=== PATIENT | male | born 1985 | race Caucasian/White ===

== ENCOUNTER 2023-05-06 10:36 | Emergency (ER) | payer OTHER, SELFPAY ==
[2023-05-06 10:56] VITALS: BP 145/102; PULSE 116; RESP 16; TEMP 36.7; O2SAT 99
[2023-05-06 11:15] LABS: Glucose Point of Care 151 mg/dL (70-110)
--- NOTE | 2023-05-06 11:27 | XRR_ITS ---
PROCEDURE INFORMATION: Exam: XR Chest Exam date and time: 05/06/2023 11:44 AM Age: 38 years old Clinical indication: Cough; Additional info: Tachycardia, HTN TECHNIQUE: Imaging protocol: Radiologic exam of the chest. Views: 1 view. COMPARISON: CR XR acute abdomen series [id number] 08/11/2017 10:14 AM FINDINGS: Lungs: There is no consolidation. Pleural spaces: There is no pleural effusion or pneumothorax. Heart/Mediastinum: Cardiomediastinal contours are unremarkable. Bones/joints: Bones are unremarkable. XR/XR chest 1V portable [id number] IMPRESSION: No acute findings.
--- NOTE | 2023-05-06 11:27 | ECG_ITS ---
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 Measurements Intervals [place] Rate: 100 P: 56 MA: 136 QRS: 66 QRSD: 108 T: 49 QT: 377 QTc: 488 Interpretive Statements SINUS TACHYCARDIA Compared to ECG 08/11/2017 10:29:39 Sinus rhythm no longer present Sinus arrhythmia no longer present Electronically Signed On 05-06-2023 14:39:43 CDT by Alan Noble M.D. [id number]
[2023-05-06 11:41] LABS: Basophils % 0.4 %; Eosinophils % 0.5 %; Lymphocytes # 1.4 10^3/uL (0.8-4.8); Lymphocytes % 19.1 %; Mean Corpuscular HGB Conc 36.7 g/dL (30-55); Mean Corpuscular Volume 97.9 fl (82-101); Mean Platelet Volume 10.5 fL (7.4-10.4); Monocytes # 0.3 10^3/uL (0.2-0.9); Monocytes % 4.5 %; Neutrophils # 5.66 10^3/uL (1.8-7.7); Neutrophils % 75.4 %; Nucleated Red Blood Cells % 0 %; Platelet Count 136 10^3/cmm (157-399); Red Blood Count 5.31 10^6/uL (3.85-5.65); Red Cell Distribution Width 13.5 % (12.1-15.1); White Blood Count 7.52 10^3/uL (3.29-11.43)
--- NOTE | 2023-05-06 11:56 | W.ED.ALCOHOL ---
HPI - Alcohol General: Chief Complaint: Alcohol Stated Complaint: blood pressure was high Time Seen by Provider: 05/06/23 11:25 History of Present Illness: Patient presents to the ER with complaints of stopping drinking cold turkey. Patient states he normally drinks about 17 shots daily he prefers [place] honey whiskey. He has had 1 shot today to try to combat the side effects of not drinking. Patient says he has chief complaints of hands cramping jaw clenching unable to eat or drink tremors. He and his had split up and this is the only way that he can try to get her back so he is going at this full force. He says he has drank all his life. Patient has no significant medical history other than 1 previous heart attack per him. Patient does not take medicine, has no allergies, has no big surgical history. Review of Systems General: Reports: 10 or more systems reviewed and unremarkable except in HPI and below PFSH ED PFSH: Medical History Nocturnal cough with wheeze URI with cough and congestion Social History Smoking and tobacco status: never smoked Physical Exam Const: COMMON NORMALS: no acute distress, average body habitus, patient oriented x3, no limitations, healthy appearing, alert and well nourished HENMT: COMMON NORMALS: normocephalic, atraumatic, hearing grossly normal bilaterally, external ears normal, Normal external nose present and moist oral mucous membranes HEAD & SCALP: normocephalic and atraumatic NOSE: Normal external nose present EXTERNAL EAR: Yes external ears normal Eye: COMMON NORMALS: Equal, round and reactive pupils present, EOMs intact bilaterally, conjunctivae normal and no scleral icterus CONJUNCTIVA: Yes conjunctivae normal PUPIL: Yes Equal, round and reactive pupils present Neck/C-Spine: COMMON NORMALS: full ROM, no lymphadenopathy, supple, no meningeal signs, no JVD and Thyroid normal THYROID: Thyroid normal Chest: COMMONS NORMALS: normal inspection of the chest and normal palpation of entire chest wall Resp: COMMON NORMALS: normal respiratory effort, No retractions, No use of accessory muscles and clear to auscultation bilaterally AUSCULTATION: clear to auscultation bilaterally Cardio: COMMON NORMALS: no JVD, regular rate, regular rhythm, S1 normal heart sound present, S2 normal heart sound present, No gallops present (Cardio), No clicks present (Cardio), No murmurs present (Cardio) and No rub (Cardio) RATE: regular rate RHYTHM: regular rhythm HEART SOUNDS: S1 normal heart sound present and S2 normal heart sound present GI: COMMON NORMALS: Normal to inspection, nondistended, normoactive bowel sounds present, Soft to palpation, non-tender, No hepatosplenomegaly present and no masses PALPATION: Yes Soft to palpation and Yes No hepatosplenomegaly present : COMMON NORMALS: Yes no CVA tenderness BLADDER/KIDNEY EXAM: Yes no CVA tenderness Back/Pelvis: COMMON NORMALS: no CVA tenderness Neuro: COMMON NORMALS: patient oriented x3 SENSORIUM/ORIENTATION: Yes alert MENINGEAL SIGNS: Yes no meningeal signs Course Vital Signs: Vital signs: Vital Signs Temperature 98.1 F 05/06/23 10:56 Pulse Rate 92 05/06/23 14:30 Respiratory Rate 16 05/06/23 10:56 Blood Pressure 137/95 05/06/23 14:30 Pulse Oximetry 95 05/06/23 14:30 Oxygen Delivery Me thod Room Air 05/06/23 12:01 MDM - Alcohol Medical Decision Making Patient decided to quit drinking cold turkey today. He commented complaining withdrawal-like symptoms. Lab work was obtained which showed his potassium and magnesium were low. These was replaced in his IV as well as multivitamin thiamine. Patient become anxious he was given Ativan. Patient's urine did show signs of infection he will be placed on Cipro. Patient be discharged home to follow-up with his PCP for further treatment. Differential Diagnosis Likely alcohol withdrawal syndrome; Unlikely alcohol withdrawal delirium, hypomagnesemia, alcohol intoxication, alcohol ketoacidosis or alcohol withdrawal seizure Medical Records I reviewed the patient's medical records. Lab Data I reviewed the patient's lab results. 05/06/23 11:33 05/06/23 12:05 Radiology Impressions Chest X-Ray 05/06/23 11:27 IMPRESSION: No acute findings. Laboratory Results WBC 7.52 10^3/uL (3.29-11.43) 05/06/23 11:33 RBC 5.31 10^6/uL (3.85-5.65) 05/06/23 11:33 Hgb 19.10 g/dL (11.27-16.99) H 05/06/23 11:33 Hct 52.0 % (37-53) 05/06/23 11:33 MCV 97.9 fl (82-101) 05/06/23 11:33 MCH 36.0 pg (27-33) H 05/06/23 11:33 MCHC 36.7 g/dL (30-55) 05/06/23 11:33 RDW 13.5 % (12.1-15.1) 05/06/23 11:33 Plt Count 136 10^3/cmm (157-399) L 05/06/23 11:33 MPV 10.5 fL (7.4-10.4) H 05/06/23 11:33 Neut % (Auto) 75.4 % 05/06/23 11:33 Lymph % (Auto) 19.1 % 05/06/23 11:33 [place] % (Auto) 4.5 % 05/06/23 11:33 Eos % (Auto) 0.5 % 05/06/23 11:33 Baso % (Auto) 0.4 % 05/06/23 11:33 Neut # (Auto) 5.66 10^3/uL (1.8-7.7) 05/06/23 11:33 Lymph # (Auto) 1.4 10^3/uL (0.8-4.8) 05/06/23 11:33 [place] # (Auto) 0.3 10^3/uL (0.2-0.9) 05/06/23 11:33 Eos # (Auto) 0.0 10^3/uL (0.0-0.8) 05/06/23 11:33 Baso # (Auto) 0.0 10^3/uL (0.0-0.1) 05/06/23 11:33 Nucleated RBC % (auto) 0 % 05/06/23 11:33 Nucleated RBCs # 0.0 /100WBC 05/06/23 11:33 Sodium 138 mmol/L (136-145) 05/06/23 12:05 Potassium 2.8 mmol/L (3.5-5.1) L* 05/06/23 12:05 Chloride 95 mmol/L (98-107) L 05/06/23 12:05 Carbon Dioxide 27 mmol/L (22-29) 05/06/23 12:05 Anion Gap 18.8 (5-19) 05/06/23 12:05 BUN 5 mg/dL (6-20) L 05/06/23 12:05 Creatinine 0.8 mg/dL (0.7-1.2) 05/06/23 12:05 GFR Calculation 109.4 mL/min (90-130) 05/06/23 12:05 Glucose 144 mg/dL (65-115) H 05/06/23 12:05 POC Glucose 151 mg/dL (70-110) H 05/06/23 11:02 Calculated Osmolality 286 mOsm/kg (285-295) 05/06/23 12:05 Calcium 8.2 mg/dL (8.5-10.5) L 05/06/23 12:05 Magnesium 1.1 mg/dL (1.7-2.3) L 05/06/23 12:05 Total Bilirubin 3.1 mg/dL (0.15-1.2) H 05/06/23 12:05 AST 33 U/L (0-40) 05/06/23 12:05 ALT 28 U/L (0-41) 05/06/23 12:05 Alkaline Phosphatase 132 U/L (40-130) H 05/06/23 12:05 Total Protein 6.5 g/dL (6.6-8.7) L 05/06/23 12:05 Albumin 4.0 g/dL (3.5-5.2) 05/06/23 12:05 Globulin 2.5 g/dL (1.3-4.6) 05/06/23 12:05 Urine Color [place] (Yellow) A 05/06/23 11:45 Urine Appearance Clear (CLEAR) 05/06/23 11:45 Urine pH 6 (5-7) 05/06/23 11:45 Ur Specific [place] 1.010 (1.005-1.030) 05/06/23 11:45 Urine Protein Trace (Negative) 05/06/23 11:45 Urine Glucose (UA) Trace (Normal) H 05/06/23 11:45 Urine Ketones 3+ (Negative) H 05/06/23 11:45 Urine Blood Neg (Negative) 05/06/23 11:45 Urine Nitrate Positive (Negative) H 05/06/23 11:45 Urine Bilirubin 2+ (Negative) H 05/06/23 11:45 Urine Urobilinogen 4+ mg/dL (Negative) H 05/06/23 11:45 Ur Leukocyte Esterase Trace (Negative) H 05/06/23 11:45 Urine RBC 0-4 /hpf (0-2) H 05/06/23 11:45 Urine WBC 0-4 /hpf (0-5) H 05/06/23 11:45 Ur Squamous Epith Cells 0-4 /hpf (0-5) H 05/06/23 11:45 Amorphous Sediment Not Reportable 05/06/23 11:45 Urine Bacteria Trace /hpf (NONE) 05/06/23 11:45 Urine Mucus 1+ /hpf 05/06/23 11:45 Urine Opiates Screen Negative ng/mL (Negative) 05/06/23 11:45 Ur Barbiturates Screen Negative ng/mL (Negative) 05/06/23 11:45 Ur Phencyclidine Scrn Negative ng/mL (Negative) 05/06/23 11:45 Ur Amphetamines Screen Negative ng/mL (Negative) 05/06/23 11:45 U Benzodiazepines Scrn Negative ng/mL (Negative) 05/06/23 11:45 Urine Cocaine Screen Negative ng/mL (Negative) 05/06/23 11:45 U Marijuana (THC) Screen Negative ng/mL (Negative) 05/06/23 11:45 Ethyl Alcohol < 10 mg/dL (0-10) 05/06/23 12:05 All radiology interpretation(s) finalized by discharge EKG Data EKG 1: I personally reviewed and interpreted this EKG as follows: EKG interpretation date: 05/06/23 EKG interpretation time: 11:22 Prior EKG tracings: not available for review Interpretation: EKG shows ventricular rate 100 bpm, [place] interval 136, QRS duration 108, QTc of 434, sinus tachycardia, no ST-T wave changes Discharge Plan Discharge Patient Disposition: Home Clinical Impression: Hypomagnesemia, Acute hypokalemia Alcohol withdrawal syndrome Qualifiers: Complication of substance-induced condition: uncomplicated Qualified Code(s): F10.930 - Alcohol use, unspecified with withdrawal, uncomplicated Urinary tract infection Qualifiers: Urinary tract infection type: acute cystitis Hematuria presence: without hematuria Qualified Code(s): N30.00 - Acute cystitis without hematuria Condition: Stable Prescriptions: New potassium chloride 20 mEq tablet extended release 20 meq PO BID Qty: 14 0RF magnesium oxide 400 mg magnesium tablet 400 mg PO BID Qty: 14 0RF ciprofloxacin HCl 500 mg tablet 500 mg PO Q12H Qty: 14 0RF Discharge Orders: Discharge ED (Routine); Ordered 05/06/23 Ordered By: Bong Rios Referrals: Eliud Mallory DO [Family Provider] - 1 week Patient Instructions: Hypokalemia, Urinary Tract Infection in Men (ED), Alcohol Withdrawal (ED), Hypomagnesemia (ED) Activity Restrictions/Additional Instructions: Please take all your medicine as directed, please follow-up with your family practice physician in the next 7 days for further evaluation and testing such as rechecking your potassium and magnesium. Coding Level of Care Code ED Electrician'S Assistant for Jackson Flores
[2023-05-06 12:00] LABS: Glucose Urine UA Trace (Normal); Ketones Urine 3+ (Negative); Protein Urine Trace (Negative); Urine Appearance Clear (CLEAR); Urine Color Orange (Yellow); pH Urine 6 (5-7)
[2023-05-06 12:01] VITALS: BP 135/90; PULSE 100; O2SAT 100
[2023-05-06 12:01] LABS: Add Urine Culture? No; Add Urine Microscopic? YES; Bacteria Urine TRACE /hpf; Bilirubin Urine 2+ (Negative); Blood Urine Neg (Negative); Leukocyte Esterase Urine Trace (Negative); Mucus Urine 1+ /hpf; Nitrate Urine Positive (Negative); RBC Urine 0-4 /hpf (0-2); Squamous Epithelial Cell Urine 0-4 /hpf (0-5); Urobilinogen Urine 4+ mg/dL (Negative); WBC Urine 0-4 /hpf (0-5)
[2023-05-06 12:14] LABS: Amphetamines Screen Urine Negative (Negative); Barbiturates Screen Urine Negative (Negative); Benzodiazepines Screen Urine Negative (Negative); Cocaine Screen Urine Negative (Negative); Opiate Screen Urine Negative (Negative); PCP Screen Urine Negative (Negative); THC Screen Urine Negative (Negative)
[2023-05-06] MEDS: LORazepam 2 mg/mL INJ 1 mL 1 MG IVP (12:14)
[2023-05-06] MEDS: folic acid 1 MG, multivitamin inj 10 ML, thiamine 100 MG in sodium chloride 0.9% 1,000 ML 252.8 MG IV (12:41)
[2023-05-06 12:51] LABS: Alanine Aminotransferase 28 U/L (0-41); Alkaline Phosphatase 132 U/L (40-130); Anion Gap 18.8 (5-19); Aspartate Amino Transferase 33 U/L (0-40); Blood Urea Nitrogen 5 mg/dL (6-20); Calcium 8.2 mg/dL (8.5-10.5); Carbon Dioxide 27 mmol/L (22-29); Chloride 95 mmol/L (98-107); Globulin 2.5 g/dL (1.3-4.6); Glomerular Filtration Rate 109.4 mL/min (90-130); Glucose 144 mg/dL (65-115); Magnesium 1.1 mg/dL (1.7-2.3); Osmolality Calculated 286 mOsm/kg (285-295); Sodium 138 mmol/L (136-145); Total Bilirubin 3.1 mg/dL (0.15-1.2); Total Protein 6.5 g/dL (6.6-8.7)
[2023-05-06 12:52] LABS: Alcohol Level < 10 mg/dL (0-10)
[2023-05-06 12:53] LABS: Potassium 2.8 mmol/L (3.5-5.1)
[2023-05-06] MEDS: potassium chloride ER 20 mEq Tablet 40 MEQ PO (13:58)
[2023-05-06 14:30] VITALS: BP 137/95; PULSE 92; O2SAT 95
[2023-05-06] MEDS: LORazepam 1 mg Tablet PO (14:40)
[2023-05-06] MEDS: magnesium sulfate premix 2 GM/50 ML PIGGYBACK IV (15:52)
[2023-05-06 16:30] VITALS: BP 141/98; PULSE 72; O2SAT 98
[2023-05-06 16:55] VITALS: BP 141/98; PULSE 72; O2SAT 98
== END 2023-05-06 16:57 | disposition home or self-care (01) ==
PROVIDERS: Emergency Provider Emergency Medicine
DX: F10.230 Alcohol dependence with withdrawal, uncomplicated (principal); N30.00 Acute cystitis without hematuria; E83.42 Hypomagnesemia; E87.6 Hypokalemia
CPT/HCPCS: 36415; 36416; 71045; 80053; 80306; 80307; 81001; 82962; 83735; 85025; 93005; 96365; 96375; 99285; J2060; J3411; J3475; J3490; J7030

== ENCOUNTER 2023-09-25 11:32 | Emergency (ER) | payer OTHER, SELFPAY ==
[2023-09-25 11:48] VITALS: BP 115/80; PULSE 87; RESP 16; TEMP 36.4; O2SAT 99; BMI 33.4
--- NOTE | 2023-09-25 13:06 | W.ED.BACK ---
HPI - Back Pain/Injury General: Chief Complaint: Back Pain/Injury Stated Complaint: back pain Time Seen by Provider: 09/25/23 13:06 Source: patient Mode of arrival: ambulatory Limitations: no limitations History of Present Illness: Patient is a 38-year-old male who presents to ED today with complaint of low back injury that he sustained while at work just prior to arrival after lifting heavy barbed wire. Patient states he felt something pop in his back. He feels like there is some pain running down his right leg. Patient states he has had similar discomforts to his back before and has thrown it out before . He is not having any bowel/bladder dysfunction. No saddle anesthesia. He is ambulating here without difficulty or assistance. MD elicited complaint: back pain and back injury Pertinent past history: prior back pain Onset (ago): hour(s) Timing: constant Severity: moderate Similar Symptoms Previously: Yes Location: lumbar spine and right lower back Radiation: right upper leg Exacerbating factors: movement and walking Relieving factors: none Context: while lifting Associated symptoms: Reports no associated symptoms; Deny abdominal pain, chills, dysuria, fatigue, fever(s) or urinary urgency Work related injury: Yes Review of Systems Const: Denies: fever(s), chills, body aches, fatigue or malaise Card: Denies: chest pain Resp: Denies: dyspnea GI: Denies: abdominal pain : Denies: flank pain, difficulty urinating, dysuria, urinary frequency, urinary urgency or urinary hesitancy Musc: Reports: back pain; Denies: neck pain, extremity swelling, joint pain or joint swelling Skin/Breast: Denies: rash Neuro: Denies: headache(s), numbness in extremities, weakness in extremities or sensory changes [facility] ED PFSH: Medical History URI with cough and congestion Nocturnal cough with wheeze Social History Smoking and tobacco/nicotine status: never used tobacco/nicotine Physical Exam Const: COMMON NORMALS: average body habitus, patient oriented x3, no limitations, healthy appearing, alert and well nourished GENERAL APPEARANCE: cooperative and in distress (somewhat uncomfortable secondary to pain) ORIENTATION/CONSCIOUSNESS: Yes awake, Yes oriented to person, Yes oriented to place and Yes oriented to time Chest: COMMONS NORMALS: normal inspection of the chest and normal palpation of entire chest wall Resp: COMMON NORMALS: normal respiratory effort and clear to auscultation bilaterally AUSCULTATION: clear to auscultation bilaterally Cardio: COMMON NORMALS: regular rate and regular rhythm RATE: regular rate RHYTHM: regular rhythm GI: COMMON NORMALS: Normal to inspection, nondistended, normoactive bowel sounds present, Soft to palpation, non-tender and no masses PALPATION: Yes Soft to palpation : COMMON NORMALS: Yes no CVA tenderness BLADDER/KIDNEY EXAM: Yes no CVA tenderness Back/Pelvis: COMMON NORMALS: no CVA tenderness, thoracic and lumbar spine normal to inspection and straight leg raise negative bilaterally THORACIC SPINE/UPPER BACK: No thoracic spinal tenderness, No paraspinal muscle tenderness and No paraspinal muscle spasm LUMBAR SPINE/LOWER BACK: No lumbar spinal tenderness, Yes paraspinal muscle tenderness Lumbar paraspinal muscle tenderness: right, No paraspinal muscle spasm, No mass present and Yes straight leg raise negative bilaterally PELVIS: Yes buttocks normal and No sciatic notch tenderness SACRUM: no tenderness COCCYX: no tenderness Extremity: COMMON NORMALS: normal to inspection and full ROM GENERAL: Yes normal exam except as noted Neuro: COMMON NORMALS: patient oriented x3, moves all extremities, no focal motor deficits, no sensory deficits noted and gait normal SENSORIUM/ORIENTATION: Yes alert, Yes oriented to person, Yes oriented to place and Yes oriented to time MOTOR EXAM: 5/5 motor strength present throughout Course Vital Signs: Vital signs: Vital Signs Temperature 97.6 F 09/25/23 11:48 Pulse Rate 87 09/25/23 11:48 Respiratory Rate 16 09/25/23 11:48 Blood Pressure 115/80 09/25/23 11:48 Pulse Oximetry 99 09/25/23 11:48 Oxygen Delivery Me thod Room Air 09/25/23 11:48 MDM - Back Pain/Injury Medical Decision Making Patient will be treated with steroids, anti-inflammatories, muscle relaxers and will follow-up with Worker's Comp. Return ED precautions given. Medical Records I reviewed the patient's medical records. No radiology studies performed this visit Discharge Plan Discharge Patient Disposition: Home Clinical Impression: Strain of lumbar region Qualifiers: Encounter type: initial encounter Qualified Code(s): S39.012A - Strain of muscle, fascia and tendon of lower back, initial encounter Condition: Stable Prescriptions: New cyclobenzaprine 10 mg tablet 10 mg PO TID Qty: 14 0RF ibuprofen 800 mg tablet 800 mg PO Q8H PRN (Reason: pain) Qty: 20 0RF methylprednisolone [Medrol ([place])] 4 mg tablets,dose pack See Rx Instructions .ROUTE .COMPLEX Qty: 21 0RF Rx Instructions: orally per package directions No Action potassium chloride 20 mEq tablet extended release 20 meq PO BID Qty: 14 0RF magnesium oxide 400 mg magnesium tablet 400 mg PO BID Qty: 14 0RF ciprofloxacin HCl 500 mg tablet 500 mg PO Q12H Qty: 14 0RF Discharge Orders: Discharge ED (Routine); Ordered 09/25/23 Ordered By: Malou Tarango Patient Instructions: Low Back Strain (ED) Activity Restrictions/Additional Instructions: Please follow-up with Worker's Comp. as directed. Coding Level of Care Code ED Oim Consultant for Jackson Flores
[2023-09-25] MEDS: orphenadrine 30 mg/mL Inj 2 mL 60 MG IM (13:28)
[2023-09-25] MEDS: dexamethasone 10 mg/mL INJ IM (13:28)
[2023-09-25] MEDS: ketorolac 60 mg/2 mL INJ IM (13:29)
[2023-09-25 13:36] VITALS: BP 126/79; PULSE 88; O2SAT 93
== END 2023-09-25 13:38 | disposition home or self-care (01) ==
PROVIDERS: Emergency Provider Physician Assistant
DX: S39.012A Strain of muscle, fascia and tendon of lower back, initial encounter (principal); X50.0XXA Overexertion from strenuous movement or load, initial encounter
CPT/HCPCS: 96372; 99284; J1100; J1885; J2360

== ENCOUNTER → 2023-12-28 11:54 | Outpatient (BNVA) | payer OTHER, SELFPAY | PROVIDERS: PCP Family Medicine; Visit Provider Emergency Medicine | DX: M79.671 Pain in right foot (principal); M19.071 Primary osteoarthritis, right ankle and foot | CPT/HCPCS: 73630 ==